=== PATIENT | male | born 1940 | race Caucasian/White ===

== ENCOUNTER 2020-01-20 08:26 | Inpatient (IN) | payer MEDICARE ==
[~2020-01-20] VITALS: Ht 177.8 cm; Wt 52.1 kg
[~2020-01-20 08:26] MED LIST: AMLO10TA8 PO; ASPI325T80 PO; ATOR20TA37 PO; CLOP75TA52 PO; FLUT1DIS IH; LISI40TA PO; METO25TA35 PO
[2020-01-20] MEDS ORDERED: PLEASE ENTER HEIGHT AND WEIGHT MC SCH (09:00)
[2020-01-20] MEDS ORDERED: SODIUM CHLORIDE 0.9% 1,000ML IVBOLUS ONE ×2 (09:00→11:00)
[2020-01-20 09:22] LABS: ALANINE AMINOTRANSFERASE 29 U/L (12-78); ANION GAP 8 mmol/L (5-15); CALCIUM 9.1 mg/dL (8.5-10.1); CHLORIDE 107 mmol/L (98-107); CREATININE 1.77 mg/dL (0.7-1.3)
[2020-01-20 09:26] LABS: ALKALINE PHOSPHATASE 122 U/L (45-117); BILIRUBIN,TOTAL 0.5 mg/dL (0.2-1.0); CREATINE KINASE, TOTAL 15 U/L (39-308); TOTAL PROTEIN 8.4 g/dL (6.4-8.2)
[2020-01-20 09:31] LABS: INTERNATIONAL NORMALIZED RATIO 1.01 (0.93-1.1); MEAN CORPUSCULAR HGB CONC 32.9 g/dL (33.2-36.2); MEAN CORPUSCULAR VOLUME 72.9 fL (81-97); MEAN PLATELET VOLUME 9.4 fL (7.4-10.4); PLATELET COUNT 196 x10^3/uL (130-400); PROTHROMBIN TIME 10.7 Seconds (9.6-11.5); RED BLOOD COUNT 5.57 x10^6/uL (4.38-5.82); RED CELL DISTRIBUTION WIDTH 17.5 % (9.4-14.8)
[2020-01-20 09:33] LABS: MD YES
--- NOTE | 2020-01-20 09:36 | NUR ---
BASIM KING . NO FAMILY IN TOWN
[2020-01-20 09:56] LABS: MICROSCOPIC INDICATED
--- NOTE | 2020-01-20 10:00 | NUR ---
PT CLEANED UP OF DRY STOOL ON EXTREMETIES. SMALL WOUNDS NOTED LEFT FOREARM.
[2020-01-20 10:01] LABS: EOS#(MANUAL) 0.02 x10^3/uL (0.0-0.4); EOS% (MANUAL) 1 % (1-7); LYMPH#(MANUAL) 1.31 x10^3/uL (1-3.4); LYMPHS% (MANUAL) 82 % (22-44); MONOS#(MANUAL) 0.24 x10^3/uL (0.3-2.7); MONOS% (MANUAL) 15 % (2-9); SEG#(MANUAL) 0.03 x10^3/uL (1.8-6.8); SEGS% (MANUAL) 2 % (42-75)
[2020-01-20 10:02] LABS: <PLATELET ESTIMATE> ADEQUATE; <PLT MORPHOLOGY> NORMAL PLT MORPH; ANISOCYTOSIS 1+; MICROCYTOSIS 1+
[2020-01-20 10:03] LABS: HYPOCHROMIA 1+
[2020-01-20 10:20] LABS: CULTURE INDICATED? NO
--- NOTE | 2020-01-20 10:55 | NUR ---
HOSPITALIST AT BEDSIDE.
[2020-01-20] MEDS ORDERED: ONDANSETRON 2MG/ML, 2ML IVPush PRN (11:00)
[2020-01-20] MEDS ORDERED: ONDANSETRON ODT 4 MG PO PRN (11:00)
[2020-01-20] MEDS ORDERED: hydrALAzine 20 MG/ML, 1ML IVPush PRN (11:00)
[2020-01-20] MEDS ORDERED: BACLOFEN 10 MG TABLET PO PRN (11:00)
[2020-01-20] MEDS ORDERED: morphine SULFATE 10 MG/ML, 1ML IVPush PRN (11:00)
[2020-01-20] MEDS ORDERED: ACETAMINOPHEN 325 MG TABLET PO PRN (11:00)
[2020-01-20] MEDS ORDERED: GABAPENTIN 300 MG CAPSULE PO PRN (11:00)
[2020-01-20] MEDS ORDERED: ALBUTEROL SULFATE 2.5 MG/3 ML NPPB PRN (11:00)
[2020-01-20] MEDS ORDERED: METO200T47 PO (11:45)
--- NOTE | 2020-01-20 11:55 | NUR ---
REPORT TO NATALIE WHITMORE. PT TO BE TRANSPORTED TO FLOOR
[2020-01-20 12:48] VITALS: BP 103/61
[2020-01-20] MEDS: SODIUM CHLORIDE 0.9% 1,000 ML IV SCH ×2 (13:06→22:05)
[2020-01-20 19:28] VITALS: BP 137/74
[2020-01-21 00:58] VITALS: BP 114/61
[2020-01-21 05:29] LABS: ANION GAP 5 mmol/L (5-15); CALCIUM 7.8 mg/dL (8.5-10.1); CHLORIDE 114 mmol/L (98-107)
[2020-01-21] MEDS: SODIUM CHLORIDE 0.9% 1,000 ML IV SCH ×3 (05:30→22:51)
[2020-01-21 05:39] LABS: CHOL/HDL RATIO 6.8; CHOLESTEROL, TOTAL 89 mg/dL (140-239); HDL CHOL % 15 % (26-37); HDL CHOLESTEROL (DIRECT) 13 mg/dL (40-60); LDL CHOLESTEROL,CALCULATED 49 mg/dL (54-169); LDL/HDL RATIO 3.8 (0.5-3.0); TRIGLYCERIDES 133 mg/dL (50-200); VLDL CHOLESTEROL 27 mg/dL (0-25)
[2020-01-21 05:45] LABS: MEAN CORPUSCULAR HEMOGLOBIN 24.1 pg (27.5-34.5); MEAN CORPUSCULAR HGB CONC 33.1 g/dL (33.2-36.2); MEAN CORPUSCULAR VOLUME 72.8 fL (81-97); MEAN PLATELET VOLUME 11.2 fL (7.4-10.4); PLATELET COUNT 161 x10^3/uL (130-400); RED BLOOD COUNT 3.98 x10^6/uL (4.38-5.82); RED CELL DISTRIBUTION WIDTH 17.1 % (9.4-14.8)
[2020-01-21 06:21] LABS: MD YES
[2020-01-21 06:55] LABS: EOS#(MANUAL) 0.02 x10^3/uL (0.0-0.4); EOS% (MANUAL) 1 % (1-7); MONOS#(MANUAL) 0.32 x10^3/uL (0.3-2.7); MONOS% (MANUAL) 15 % (2-9); REACTIVE LYMPHS # (MANUAL) 0.04 x10^3/uL (0-0); REACTIVE LYMPHS % (MANUAL) 2 % (0-0)
[2020-01-21 06:58] LABS: LYMPHS% (MANUAL) 80 % (22-44); SEG#(MANUAL) 0.04 x10^3/uL (1.8-6.8); SEGS% (MANUAL) 2 % (42-75)
[2020-01-21 06:59] LABS: <PLATELET ESTIMATE> ADEQUATE; ANISOCYTOSIS 1+; HYPOCHROMIA 1+; LARGE PLATELETS 1+; LYMPH#(MANUAL) 1.68 x10^3/uL (1-3.4); MICROCYTOSIS 1+
[2020-01-21 07:25] VITALS: BP 110/60
[2020-01-21] MEDS: CLOPIDOGREL 75 MG TABLET PO SCH (07:37)
[2020-01-21 10:42] LABS: OCCULT BLOOD NEGATIVE (NEGATIVE)
[2020-01-21 10:52] LABS: STOOL FOR LEUKOCYTES NONE SEEN (NEGATIVE)
[2020-01-21 11:01] LABS: CLOSTRIDIUM DIFFICILE ANTIGEN NEGATIVE; CLOSTRIDIUM DIFFICILE TOXIN NEGATIVE (Negative)
[2020-01-21 13:43] VITALS: BP 99/58
[2020-01-21 20:31] VITALS: BP 122/65
[2020-01-22 01:02] VITALS: BP 125/58
[2020-01-22 05:49] LABS: CALCIUM 7.8 mg/dL (8.5-10.1); CHLORIDE 113 mmol/L (98-107)
[2020-01-22 05:56] LABS: ALANINE AMINOTRANSFERASE 17 U/L (12-78); ALBUMIN 1.5 g/dL (3.4-5.0); ALKALINE PHOSPHATASE 84 U/L (45-117); ANION GAP 7 mmol/L (5-15); BILIRUBIN,TOTAL 0.5 mg/dL (0.2-1.0); CREATININE 0.85 mg/dL (0.7-1.3)
[2020-01-22 05:59] LABS: MEAN CORPUSCULAR HEMOGLOBIN 23.9 pg (27.5-34.5); MEAN CORPUSCULAR HGB CONC 32.9 g/dL (33.2-36.2); MEAN CORPUSCULAR VOLUME 72.7 fL (81-97); MEAN PLATELET VOLUME 10.1 fL (7.4-10.4); PLATELET COUNT 157 x10^3/uL (130-400); RED BLOOD COUNT 4.09 x10^6/uL (4.38-5.82); RED CELL DISTRIBUTION WIDTH 16.9 % (9.4-14.8)
[2020-01-22 06:35] LABS: MD YES
[2020-01-22 06:41] LABS: ANISOCYTOSIS 1+; HYPOCHROMIA 1+; LYMPH#(MANUAL) 1.81 x10^3/uL (1-3.4); LYMPHS% (MANUAL) 86 % (22-44); MICROCYTOSIS 1+; MONOS#(MANUAL) 0.17 x10^3/uL (0.3-2.7); MONOS% (MANUAL) 8 % (2-9); REACTIVE LYMPHS # (MANUAL) 0.06 x10^3/uL (0-0); REACTIVE LYMPHS % (MANUAL) 3 % (0-0); SEG#(MANUAL) 0.06 x10^3/uL (1.8-6.8); SEGS% (MANUAL) 3 % (42-75)
[2020-01-22 06:42] LABS: <PLATELET ESTIMATE> ADEQUATE; LARGE PLATELETS 1+
[2020-01-22 06:55] VITALS: BP 118/61
[2020-01-22] MEDS: SODIUM CHLORIDE 0.9% 1,000 ML IV SCH ×3 (08:05→23:27)
[2020-01-22] MEDS: CLOPIDOGREL 75 MG TABLET PO SCH (08:05)
[2020-01-22] MEDS: MEGESTROL ORAL.SUSP 40 MG/ML PO SCH (13:11)
[2020-01-22 13:12] VITALS: BP 121/65
[2020-01-22 20:00] VITALS: BP 108/58
[2020-01-23 03:18] VITALS: BP 123/63
[2020-01-23 05:13] LABS: CHLORIDE 114 mmol/L (98-107)
[2020-01-23 05:19] LABS: ALANINE AMINOTRANSFERASE 16 U/L (12-78); ALBUMIN 1.4 g/dL (3.4-5.0); ALKALINE PHOSPHATASE 80 U/L (45-117); ANION GAP 6 mmol/L (5-15); BILIRUBIN,TOTAL 0.4 mg/dL (0.2-1.0); CALCIUM 7.7 mg/dL (8.5-10.1); CREATININE 0.74 mg/dL (0.7-1.3); TOTAL PROTEIN 5.8 g/dL (6.4-8.2)
[2020-01-23 05:27] LABS: MEAN CORPUSCULAR HEMOGLOBIN 24.5 pg (27.5-34.5); MEAN CORPUSCULAR HGB CONC 33.6 g/dL (33.2-36.2); MEAN CORPUSCULAR VOLUME 72.9 fL (81-97); MEAN PLATELET VOLUME 9.8 fL (7.4-10.4); PLATELET COUNT 173 x10^3/uL (130-400); RED BLOOD COUNT 3.97 x10^6/uL (4.38-5.82); RED CELL DISTRIBUTION WIDTH 17.3 % (9.4-14.8)
[2020-01-23 06:20] LABS: MD YES
[2020-01-23 06:28] LABS: EOS#(MANUAL) 0.05 x10^3/uL (0.0-0.4); EOS% (MANUAL) 2 % (1-7); LYMPH#(MANUAL) 1.93 x10^3/uL (1-3.4); LYMPHS% (MANUAL) 84 % (22-44); MONOS#(MANUAL) 0.21 x10^3/uL (0.3-2.7); MONOS% (MANUAL) 9 % (2-9); REACTIVE LYMPHS # (MANUAL) 0.07 x10^3/uL (0-0); REACTIVE LYMPHS % (MANUAL) 3 % (0-0); SEG#(MANUAL) 0.05 x10^3/uL (1.8-6.8); SEGS% (MANUAL) 2 % (42-75)
[2020-01-23 06:31] LABS: ANISOCYTOSIS 1+; MICROCYTOSIS 1+; OVALOCYTES 1+
[2020-01-23 06:32] LABS: <PLATELET ESTIMATE> ADEQUATE; <PLT MORPHOLOGY> NORMAL PLT MORPH
[2020-01-23 07:21] VITALS: BP 116/64
[2020-01-23] MEDS: CLOPIDOGREL 75 MG TABLET PO SCH (07:52)
[2020-01-23] MEDS ORDERED: ALBU18HF INH (07:52)
[2020-01-23] MEDS: SODIUM CHLORIDE 0.9% 1,000 ML IV SCH (07:53)
[2020-01-23] MEDS ORDERED: SODIUM PHOSPHATE 30 MMOL in SODIUM CHLORIDE 0.9% 500 ML IV ONE (10:30)
[2020-01-23] MEDS: MEGESTROL ORAL.SUSP 40 MG/ML PO SCH (10:31)
[2020-01-23] MEDS ORDERED: ALBUTEROL SULFATE 2.5 MG/3 ML HOMEINH PRN ×2 (11:00)
[2020-01-23 13:12] VITALS: BP 118/69
== END 2020-01-23 16:30 | DRG 682 ==
LOC: ED 09:27 → SUATTDRO 10:33 → EDIP 10:59 → 3N 12:25
PROVIDERS: ADMIT Hospitalist; ATTEND Hospitalist
DX: N17.0 Acute kidney failure with tubular necrosis (principal); E43 Unspecified severe protein-calorie malnutrition; R65.10 Systemic inflammatory response syndrome (SIRS) of non-infectious origin without acute organ dysfunction; Z68.1 Body mass index [BMI] 19.9 or less, adult; J44.9 Chronic obstructive pulmonary disease, unspecified; R62.7 Adult failure to thrive; D70.9 Neutropenia, unspecified; D50.9 Iron deficiency anemia, unspecified; E78.5 Hyperlipidemia, unspecified; E83.39 Other disorders of phosphorus metabolism; I10 Essential (primary) hypertension; I73.9 Peripheral vascular disease, unspecified; S50.311A Abrasion of right elbow, initial encounter; Z59.0 Homelessness; Z82.5 Family history of asthma and other chronic lower respiratory diseases; Z91.81 History of falling
CPT/HCPCS: 36415; 71045; 71250; 80048; 80053; 80061; 81001; 82272; 82550; 82728; 83540; 83550; 83735; 84100; 84134; 84443; 85014; 85018; 85025; 85610; 85730; 87040; 87324; 89055; 93005; 96360; G0378; J7030; J7040